=== PATIENT | male | born 1960 ===

== ENCOUNTER 2024-06-30 10:30 | Emergency (ER) | payer OTHER ==
[2024-06-30] MEDS: fentaNYL 50 MCG/ML SDV IVPUSH ONE (11:21)
[2024-06-30] MEDS: Midazolam 1 MG/ML 2 ML SDV IVPUSH ONE (11:22)
[2024-06-30] MEDS: Ketamine 200 MG/20 ML MDV IVPUSH ONE (11:25)
[2024-06-30] MEDS: Sodium Chloride 0.9% 500 ML IV SCH (12:41)
== END 2024-06-30 13:25 | disposition home or self-care (01) ==
LOC: CC.ED 10:30
DX: S43.015A Anterior dislocation of left humerus, initial encounter (principal); W01.0XXA Fall on same level from slipping, tripping and stumbling without subsequent striking against object, initial encounter
CPT/HCPCS: 23650; 73020-LT; 73030-LT; 99283-25; J2250; J3010; J3490; J7040